=== PATIENT | female | born 1945 | race Caucasian/White ===

== ENCOUNTER 2019-05-25 11:16 | Day surgery (SDC) | payer MEDICARE, OTHER ==
[2019-05-25] MEDS: POLYMYXIN/BACITRACIN 1L IRRIG (12:47)
[2019-05-25] MEDS: LIDOCAINE 1% (MPF) 30 ML INJ (12:58)
[2019-05-25] MEDS: BUPIVACAINE 0.5% (SDV) 30 ML INJ (12:59)
[2019-05-25] MEDS ORDERED: LACTATED RINGER'S 1,000 ML IV (13:00)
[2019-05-25] MEDS ORDERED: MIDAZOLAM 1 MG/ML 2 ML INJ (13:25)
[2019-05-25] MEDS ORDERED: FENTAnyl 50 MCG/ML VIAL (13:26)
[2019-05-25] MEDS ORDERED: LIDOCAINE 2% (SDV) 5 ML INJ (14:03)
[2019-05-25] MEDS ORDERED: ONDANSETRON 4 MG INJ (14:03)
[2019-05-25] MEDS ORDERED: PROPOFOL 40 ML (14:03)
[2019-05-25] MEDS ORDERED: CEFAZOLIN 1 GM INJ (14:03)
[2019-05-25] MEDS ORDERED: FENTAnyl 50 MCG/ML VIAL IV (14:30)
[2019-05-25] MEDS ORDERED: HYDROmorphONE 1 MG/5 ML IV SYRINGE IV ×2 (14:30)
[2019-05-25] MEDS ORDERED: KETOROLAC 30 MG INJ IV (14:30)
[2019-05-25] MEDS ORDERED: LABETALOL HCL 20MG INJ IV (14:30)
[2019-05-25] MEDS ORDERED: ONDANSETRON 4 MG INJ IV (14:30)
[2019-05-25] MEDS ORDERED: DIPHENHYDRAMINE 50 MG INJ IV (14:30)
[2019-05-25] MEDS ORDERED: MEPERIDINE 25 MG INJ IV (14:30)
== END 2019-05-25 17:00 | disposition home or self-care (01) ==
LOC: SDS 11:16
DX: T81.30XD Disruption of wound, unspecified, subsequent encounter (principal); Y83.8 Other surgical procedures as the cause of abnormal reaction of the patient, or of later complication, without mention of misadventure at the time of the procedure; L97.329 Non-pressure chronic ulcer of left ankle with unspecified severity; I10 Essential (primary) hypertension; E78.5 Hyperlipidemia, unspecified; E11.9 Type 2 diabetes mellitus without complications
CPT/HCPCS: 15271